=== PATIENT | female | born 1990 | race Caucasian/White ===

== ENCOUNTER 2017-10-29 03:26 | Emergency (ER) | payer SELFPAY ==
[2017-10-29 03:33] VITALS: BP 130/82
[2017-10-29] MEDS ORDERED: ONDANSETRON ODT 4 MG TAB (6 TAB/ER DISP) PO PRN (03:44)
--- NOTE | 2017-10-29 03:51 | ER Document Report ---
ED General - General Chief Complaint: Nausea/Vomiting/Diarrhea Stated Complaint: NAUSEA,VOMITING,DIARRHEA Time Seen by Provider: 10/29/17 03:36 - HPI Patient complains to provider of: Nausea vomiting diarrhea Notes: Patient coming in for nausea vomiting diarrhea ongoing for the last 3 days. Patient denies any sick contacts denies any recent travel. Patient states that her nausea and vomiting had improved therefore she had a lumpy at the night and then started to vomit again. Patient states that she really would like a work note to return to work on Sunday. Patient otherwise looks nontoxic - Related Data Allergies/Adverse Reactions: No Known Allergies Allergy (Unverified 10/29/17 03:27) Past Medical History - Social History Smoking Status: Unknown if Ever Smoked Family History: Reviewed & Not Pertinent Review of Systems - Review of Systems Constitutional: No symptoms reported EENT: No symptoms reported Cardiovascular: No symptoms reported Respiratory: No symptoms reported Gastrointestinal: Diarrhea, Nausea, Vomiting Genitourinary: No symptoms reported Female Genitourinary: No symptoms reported Musculoskeletal: No symptoms reported Skin: No symptoms reported Hematologic/Lymphatic: No symptoms reported Neurological/Psychological: No symptoms reported -: Yes All other systems reviewed and negative Physical Exam - Vital signs Vitals: Temp Pulse Resp BP Pulse Ox 98.7 F 83 16 130/82 H 98 10/29/17 03:29 10/29/17 03:29 10/29/17 03:29 10/29/17 03:29 10/29/17 03:29 Interpretation: Normal - General General appearance: Appears well, Alert - HEENT Head: Normocephalic, Atraumatic Eyes: Normal Pupils: PERRL - Respiratory Respiratory status: No respiratory distress Chest status: Nontender Breath sounds: Normal Chest palpation: Normal - Cardiovascular Rhythm: Regular Heart sounds: Normal auscultation Murmur: No - Abdominal Inspection: Normal Distension: No distension Bowel sounds: Normal Tenderness: Nontender Organomegaly: No organomegaly - Back Back: Normal, Nontender - Extremities General upper extremity: Normal inspection, Nontender, Normal color, Normal ROM , Normal temperature General lower extremity: Normal inspection, Nontender, Normal color, Normal ROM , Normal temperature, Normal weight bearing. No: Darcy's sign - Neurological Neuro grossly intact: Yes Cognition: Normal Orientation: AAOx4 Carroll Coma Scale Eye Opening: Spontaneous Carroll Coma Scale Verbal: Oriented Dottie Coma Scale Motor: Obeys Commands Dottie Coma Scale Total: 15 Speech: Normal Motor strength normal: LUE, RUE, LLE, RLE Sensory: Normal - Psychological Associated symptoms: Normal affect, Normal mood - Skin Skin Temperature: Warm Skin Moisture: Dry Skin Color: Normal Course - Re-evaluation Re-evalutation: 10/29/17 06:07 The patient presents with nausea vomiting diarrhea without signs of peritonitis or other life-threatening or serious etiology. The patient appears stable for discharge and has been instructed to return immediately if the symptoms worsen in any way, or in 8-12hr if not improved for re-evaluation. The patient has been instructed to return if the symptoms worsen or change in any way. - Vital Signs Vital signs: Temp Pulse Resp BP Pulse Ox 98.7 F 83 16 130/82 H 98 10/29/17 03:29 10/29/17 03:29 10/29/17 03:29 10/29/17 03:29 10/29/17 03:29 Discharge - Discharge Clinical Impression: Nausea vomiting and diarrhea Condition: Good Disposition: HOME, SELF-CARE Instructions: Gastroenteritis (adult) ([facility] [place]) Additional Instructions: Please observe a clear liquid diet for the next 6-12 hours. Then you can advance as tolerated I would recommend starchy foods such as toast and crackers. Please avoid any food with excess fat grease or all avoid fried food and dairy products. More likely have a viral gastroenteritis. Take medications as prescribed. You may also take Tylenol Motrin for pain control. Please make sure you are drinking plenty of fluids such as Gatorade and water to stay hydrated. Prescriptions: Ondansetron [Zofran Odt] 4 mg PO Q6 PRN #30 tab.rapdis PRN Reason: For Nausea/Vomiting Promethazine HCl [Phenergan 25 mg Tablet] 25 mg PO Q6 #30 tablet Forms: Return to Work
== END 2017-10-29 04:05 | disposition home or self-care (01) ==
LOC: ER 03:26
DX: R11.2 Nausea with vomiting, unspecified (principal); R19.7 Diarrhea, unspecified
CPT/HCPCS: 99283

== ENCOUNTER 2018-05-08 09:30 | Emergency (ER) | payer SELFPAY ==
[2018-05-08] MEDS ORDERED: NORMAL SALINE 1000 ML 1,000 ML IV PRN (09:48)
[2018-05-08] MEDS ORDERED: HYDROCODONE/ACETAMINOPHEN 5-325 MG TABLET PO ONE (09:49)
[2018-05-08] MEDS ORDERED: KETOROLAC TROMETHAMINE INJ/PF 30 MG/1 ML SDV IV ONE (09:49)
--- NOTE | 2018-05-08 09:51 | ER Document Report ---
ED Medical Screen (RME) - General Chief Complaint: Vaginal Bleeding Stated Complaint: VAGINAL BLEEDING/PELVIC PAIN Time Seen by Provider: 05/08/18 09:47 Notes: 28 years old female with a history of polycystic ovarian syndrome, not taking any metformin, has irregular vaginal bleeding on and off every 2 weeks spotting. But last 2 days having heavy bleeding particularly today passing clots, associated with severe pelvic pain therefore presented to the ED. Denies any fever chills or other constitutional symptoms. TRAVEL OUTSIDE OF THE [place] IN LAST 30 DAYS: No - Related Data Allergies/Adverse Reactions: No Known Allergies Allergy (Verified 05/08/18 09:31) Past Medical History - Social History Chew tobacco use (# tins/day): No Frequency of alcohol use: Rare Drug Abuse: None Renal/ Medical History: Denies: Hx Peritoneal Dialysis Past Surgical History: Reports: Hx Cholecystectomy - 2007 Physical Exam - Vital signs Vitals: Temp Pulse Resp BP Pulse Ox 98.2 F 93 20 134/75 H 95 05/08/18 09:36 05/08/18 09:36 05/08/18 09:36 05/08/18 09:36 05/08/18 09:36 Course - Vital Signs Vital signs: Temp Pulse Resp BP Pulse Ox 98.2 F 93 20 134/75 H 95 05/08/18 09:36 05/08/18 09:36 05/08/18 09:36 05/08/18 09:36 05/08/18 09:36
[2018-05-08 10:39] LABS: ABSOLUTE BASOPHILS # (AUTO) 0.1 10^3/uL (0.0-0.2); ABSOLUTE EOSINOPHILS # (AUTO) 0.3 10^3/uL (0.0-0.6); ABSOLUTE LYMPHOCYTES (AUTO) 2.5 10^3/uL (0.5-4.7); ABSOLUTE MONOCYTES (AUTO) 0.4 10^3/uL (0.1-1.4); ABSOLUTE NEUT (AUTO) 6.6 10^3/uL (1.7-8.2); BASOPHILS % (AUTO) 0.5 % (0-2); EOSINOPHILS % (AUTO) 3.1 % (0-6); HEMATOCRIT 35.2 % (36.0-47.0); HEMOGLOBIN 11.4 g/dL (12.0-15.5); LYMPHOCYTES % (AUTO) 25.1 % (13-45); MEAN CORPUSCULAR HEMOGLOBIN 24.2 pg (27.0-33.4); MEAN CORPUSCULAR HGB CONC 32.4 g/dL (32.0-36.0); MEAN CORPUSCULAR VOLUME 75 fl (80-97); MONOCYTES % (AUTO) 4.3 % (3-13); PLATELET COUNT 383 10^3/uL (150-450); RED CELL DISTRIBUTION WIDTH 16.5 % (11.5-14.0); TOTAL CELLS COUNTED % (AUTO) 100 %; WHITE BLOOD COUNT 9.9 10^3/uL (4.0-10.5)
[2018-05-08 10:56] LABS: APPEARANCE,URINE SLIGHTLY-CLOUDY; BILIRUBIN,URINE NEGATIVE (NEGATIVE); COLOR,URINE YELLOW; GLUCOSE, URINE NEGATIVE (NEGATIVE); KETONES,URINE NEGATIVE (NEGATIVE); LEUKOCYTE ESTERASE,URINE NEGATIVE (NEGATIVE); NITRITE,URINE NEGATIVE (NEGATIVE); PROTEIN,URINE NEGATIVE (NEGATIVE); URINE SPECIFIC GRAVITY 1.025; UROBILINOGEN,URINE NEGATIVE mg/dL (<2.0)
--- NOTE | 2018-05-08 11:19 | ER Document Report ---
HPI - HPI Pain Level: 3 Notes: Patient is a 28-year-old female with a history of PCOS who presents to the ED complaining of heavier than normal vaginal bleeding over the last day with spotting that began 3 days ago. Patient states that she has noticed a couple clots being passed. She has been going through a pad every 2 hours. Patient states that she does have associated right lower pelvic pressure and discomfort. The pain is not sharp. Patient states that she is eating and drinking without any difficulties. She is urinating normally and having normal bowel movement. Patient states that she is normally irregular with her menstrual cycles. She has not noticed any other vaginal odor or discharge. She has no concern of STD or STI. Denies any headache, fever, URI, sore throat , chest pain, palpitations, syncope, cough, shortness of breath, wheeze, dyspnea , nausea/vomiting/diarrhea, urinary retention, dysuria, hematuria, back pain, loss of control of bowel or bladder, numbness/tingling, or rash. - ROS Systems Reviewed and Negative: Yes All other systems reviewed and negative - DERM Skin Color: Normal Past Medical History - Social History Smoking Status: Current Every Day Smoker Chew tobacco use (# tins/day): No Frequency of alcohol use: Rare Drug Abuse: None Family History: Reviewed & Not Pertinent Patient has suicidal ideation: No Patient has homicidal ideation: No Renal/ Medical History: Denies: Hx Peritoneal Dialysis Past Surgical History: Reports: Hx Cholecystectomy - 2008 Vertical Provider Document - CONSTITUTIONAL Agree With Documented VS: Yes Notes: PHYSICAL EXAMINATION: GENERAL: Well-appearing, well-nourished and in no acute distress. LUNGS: Breath sounds clear to auscultation bilaterally and equal. No wheezes rales or rhonchi. HEART: Regular rate and rhythm without murmurs, rubs, gallops. ABDOMEN: Soft, nondistended abdomen. No guarding, no rebound. No masses appreciated. Normal bowel sounds present. No CVA tenderness bilaterally. Non- tender to palpation. Musculoskeletal: FROM to passive/active. Strength 5+/5. Extremities: No cyanosis, clubbing, or edema b/l. Peripheral pulses 2+. Capillary refill less than 3 seconds. NEUROLOGICAL: Normal speech, normal gait. PSYCH: Normal mood, normal affect. SKIN: Warm, Dry, normal turgor, no rashes or lesions noted. - INFECTION CONTROL TRAVEL OUTSIDE OF THE [place] IN LAST 30 DAYS: No Course - Re-evaluation Re-evalutation: 05/08/18 13:23 Patient is an afebrile, well-hydrated, 28-year-old female who presents to the ED with vaginal bleeding and pelvic pain. Pt has a hemorrhagic cyst and nabothian cyst noted on US. Vitals are acceptable without any significant tachycardia, tachypnea, or hypoxia. PE is otherwise unremarkable. CBC, Urinalysis, and hCG are unremarkable for any acute pathology. Patient is nontoxic-appearing is tolerating p.o. without any difficulties. TVUS otherwise unremarkable aside from above. No other labs or imaging warranted at this time based on H&P. Low suspicion/risk for acute appendicitis, bowel obstruction, acute cholecystitis, acute cholangitis, perforated diverticulitis, incarcerated hernia, pancreatitis, perforated ulcer, peritonitis, sepsis, pelvic inflammatory disease, ectopic , tubo-ovarian abscess, ovarian torsion, or other systemic emergent condition at this time. Patient is aware that her condition can change from initial presentation and she needs to monitor symptoms closely and seek medical attention if any acute changes. I will send her home with prescription for naproxen. Conservative measures otherwise for symptoms. Recheck with your PCM/OBGYN in 2-3 days. Return to the ED with any worsening/concerning symptoms otherwise as reviewed in discharge. Patient is in agreement. - Vital Signs Vital signs: Temp Pulse Resp BP Pulse Ox 98.2 F 93 20 134/75 H 95 05/08/18 09:36 05/08/18 09:36 05/08/18 09:36 05/08/18 09:36 05/08/18 09:36 - Laboratory Result Diagrams: 05/08/18 10:08 Laboratory results interpreted by me: 05/08/18 05/08/18 09:45 10:08 Hgb 11.4 L Hct 35.2 L MCV 75 L MCH 24.2 L RDW 16.5 H Urine Blood LARGE H Discharge - Discharge Clinical Impression: Nabothian cyst, Vaginal bleeding Ovarian cyst Qualifiers: Laterality: right Qualified Code(s): N83.201 - Unspecified ovarian cyst, right side Condition: Stable Disposition: HOME, SELF-CARE Instructions: Vaginal Bleeding ([facility]), Ovarian Cyst ([facility]) Additional Instructions: Maintain fluid intake Proper hygenic technique Keep the skin clean Tylenol/ibuprofen as needed F/u with your PCM/OBGYN in 2-3 days for a recheck Return to the ED with any development of AMES/fever, trouble with vision, eye redness, worsening pain, urethral discharge, urinary retention, blood in the urine, flank pain, abdominal pain, n/v, Chest Pain, shortness of breath, joint pains, trouble breathing, or any other worsening/concerning symptoms as needed otherwise. Prescriptions: Naproxen 500 mg PO BID PRN #30 tablet PRN Reason: Forms: Elevated Blood Pressure Referrals: [facility] [Provider Group] - 05/10/18
--- NOTE | 2018-05-08 13:22 | RADIOLOGY REPORT (SQ) ---
EXAM DESCRIPTION: U/S NON OB PEL TV W/DOPPLER COMPLETED DATE/TIME: 05/08/2018 12:54 pm REASON FOR STUDY: heavy bleeding, pain COMPARISON: None. TECHNIQUE: Dynamic and static grayscale images acquired of the pelvis via transvaginal approach and recorded on PACS. Additional selected color Doppler and spectral images recorded. LIMITATIONS: None. FINDINGS: UTERUS: Contour normal. No mass. Uterus is 7 x 4 x 4 cm in size. ENDOMETRIAL STRIPE: No focal or generalized thickening. No masses. 8 mm thick, normal. CERVIX: Closed, 2 x 3 cm nabothian cyst RIGHT OVARY AND DOPPLER: Right ovary is 4.2 x 3.7 x 3.5 cm in size. A cyst with low level internal e choes is present, 3.2 x 2.6 cm in size likely a hemorrhagic cyst. Normal arterial vascular flow witho ut evidence for torsion. LEFT OVARY AND DOPPLER: Normal size, 4.1 x 2.2 x 2.3 cm in size. No worrisome masses. Normal arterial vascular flow without evidence for torsion. FREE FLUID: None noted. OTHER: No other significant finding. IMPRESSION: 3.2 X 2.6 CM HEMORRHAGIC CYST RIGHT OVARY. 2 X 3 CM NABOTHIAN CYST IN THE CERVIX. OTHERWISE, UNREMARKABLE TRANSVAGINAL PELVIC ULTRASOUND. TECHNICAL DOCUMENTATION: JOB ID: [id number] [employer]- All Rights Reserved Reading location - IP/workstation name: [email or web address]
[2018-05-08 14:16] VITALS: BP 105/75
== END 2018-05-08 14:18 | disposition home or self-care (01) ==
LOC: ER 09:30
DX: N88.8 Other specified noninflammatory disorders of cervix uteri (principal); E28.2 Polycystic ovarian syndrome; F17.200 Nicotine dependence, unspecified, uncomplicated; R10.2 Pelvic and perineal pain; N93.9 Abnormal uterine and vaginal bleeding, unspecified
CPT/HCPCS: 99284; 96361; 96374; 36415; 85025; 81025; 81001; 76830; 93976; J1885; J7030